=== PATIENT | female | born 1930 | race Caucasian/White ===

== ENCOUNTER 2016-10-23 12:28 | Inpatient (IN) | payer MEDICARE ==
[2016-10-23] MEDS ORDERED: IPRATROPIUM/ALBUTEROL 0.5/3 MG 3 ML AMPUL.NEB IH PRN (12:43)
[2016-10-23] MEDS ORDERED: HOME MEDICATION LIST NEEDED 1 EA EACH MC ONE (12:43)
[2016-10-23] MEDS ORDERED: FAMOTIDINE 20 MG TABLET PO PRN (12:43)
[2016-10-23] MEDS ORDERED: GUAIFENESIN ER 600 MG TABLET PO SCH (13:00)
--- NOTE | 2016-10-23 14:04 | RADIOLOGY REPORT ---
HISTORY: Shortness of breath. COMPARISON: 12/29/2011. FINDINGS: 2 views of the chest obtained. Marked hyperinflation of both lungs appears stable. There is blunting of the right costophrenic angle which is new since the prior study, suggesting a small effusion. There is right middle lobe collapse /consolidation which is new since the prior study. There is no evidence of pulmonary edema. There is no evidence of pneumothorax. The heart is not enlarged. The bones appear unremarkable. IMPRESSION: Right middle lobe airspace consolidation/collapse, which could reflect pneumonia. Follow-up chest rad iograph is recommended in 6 weeks to ensure resolution. Small right pleural effusion is new since the prior study, and may be sympathetic. Stable hyperinflation. No evidence of pulmonary edema. Final Electronic Signature: This report was electronically signed by Kvng Heller MD on 10/24/19 17 2:01 PM. [email or web address] /
[2016-10-23] MEDS: NORMAL SALINE 1,000 ML IV SCH (14:45)
[2016-10-23] MEDS ORDERED: O2 HUMIDIFIER 650 ML BOTTLE INHALATION ONE (14:56)
[2016-10-23] MEDS ORDERED: metroNIDAZOLE/SOD CL 500 MG in NORMAL SALINE PREMIX 100 ML 1 BAG IV SCH (15:00)
[2016-10-23 15:12] LABS: BLOOD UREA NITROGEN 25 mg/dL (7-17); CALCIUM 9.4 mg/dL (8.4-10.2); CHLORIDE 99 mmol/L (98-107); GLUCOSE 108 mg/dL (70-100); POTASSIUM 4.4 mmol/L (3.5-5.1); SODIUM 138 mmol/L (137-145)
[2016-10-23 15:15] LABS: HEMATOCRIT 34.9 % (36.0-48.0); HEMOGLOBIN 11.5 g/dL (12.0-16.0); MEAN CORPUSCULAR HEMOGLOBIN 34.6 pg (29.0-35.0); MEAN PLATELET VOLUME 7.3 fL (7.4-10.4); NEUTROPHILS 87.1 % (54.0-75.0); PLATELET COUNT 178 X 10^3uL (130-440); RED BLOOD COUNT 3.33 X 10^6uL (4.20-6.10); RED CELL DISTRIBUTION WIDTH 12.3 % (11.5-14.5); WHITE BLOOD COUNT 8.2 X 10^3uL (3.9-10.7)
[2016-10-23 15:16] LABS: BASOPHILS 0.4 % (0.0-2.0); EOSINOPHILS 1.1 % (0.0-6.0); EOSINOPHILS# 0.1 X 10^3uL (0.0-0.4); LYMPHOCYTES# 0.3 X 10^3uL (0.8-3.8); MONOCYTES 7.4 % (2.0-10.0); MONOCYTES# 0.6 X 10^3uL (0.2-1.0); NEUTROPHILS# 7.1 X 10^3uL (2.6-6.7)
[2016-10-23] MEDS ORDERED: PIGGYBACK IV ONE ×2 (15:32→21:38)
[2016-10-23] MEDS ORDERED: SOD CL IV ONE ×2 (15:32→21:38)
[2016-10-23] MEDS ORDERED: METRONIDAZOLE IV ONE ×2 (15:32→21:38)
[2016-10-23] MEDS ORDERED: LEVOFLOXACIN/D5W 100 ML IV ONE (15:34)
[2016-10-23] MEDS ORDERED: LEVOFLOXACIN/D5W 500 MG in DEXTROSE 5% PREMIX 100 ML 1 BAG IV ONE (16:00)
[2016-10-23] MEDS: GUAIFENESIN ER 600 MG TABLET PO SCH (21:24)
[2016-10-23] MEDS: metroNIDAZOLE/SOD CL 500 MG in NORMAL SALINE PREMIX 100 ML 1 BAG IV SCH (21:24)
[2016-10-23] MEDS: ACETAMINOPHEN 325 MG TABLET PO PRN (22:03)
[2016-10-24] MEDS: metroNIDAZOLE/SOD CL 500 MG in NORMAL SALINE PREMIX 100 ML 1 BAG IV SCH ×3 (05:34→21:05)
[2016-10-24] MEDS ORDERED: PIGGYBACK IV ONE ×3 (05:48→21:16)
[2016-10-24] MEDS ORDERED: SOD CL IV ONE ×3 (05:48→21:16)
[2016-10-24] MEDS ORDERED: METRONIDAZOLE IV ONE ×3 (05:48→21:16)
[2016-10-24] MEDS: GUAIFENESIN ER 600 MG TABLET PO SCH ×2 (09:51→21:04)
[2016-10-24] MEDS: LEVOFLOXACIN/D5W 250 MG/50 ML PIGGYBACK IV SCH (09:51)
--- NOTE | 2016-10-24 10:18 | PROGRESS NOTE: IM APSO ---
Assessment and Plan - Date of Encounter Date of Encounter: 10/24/16 (1) Pneumonia Status: Acute Assessment and plan: Probable aspiration pneumonia related to dysphagia from prior strokes. Suspect component of bronchiectasis from chronic inflammation and aspiration. Will request CT chest and increase pulmonary toilet with incentive spirometry and flutter valve as well as nebulizers. May require chest physiotherapy as well. In addition I placed consult for speech therapy for bedside evaluation and video fluoroscopy if needed. Recommended antibiotics to improve anaerobic coverage. We will follow-up surrogate markers of infection including white count and temperature. Current Visit: Yes (2) Stroke Status: Acute Assessment and plan: Continue dz modifying treatment for secondary prevention Current Visit: Yes (3) Spastic hemiplegia Status: Acute Current Visit: Yes (4) Dyslipidemia Status: Acute Current Visit: Yes (5) Hypothyroid Status: Acute Assessment and plan: compensated Current Visit: Yes (6) Obstructive lung disease Status: Acute Assessment and plan: possible chronic bronchitis but with exam suggestive component bronchiectesis. CT should help clarify and may need aggressive pulmonary toilet as above and aspiration precautions/ST evaluation and training with modified diet Current Visit: Yes - Time Spent With Patient Total time spent with greater than 50% in coordination of care (as documented) at patient's floor/unit and/or counseling patient: 25 - 35 minutes IM: PN Subjective General: no fatigue, no fever, no chills Cardiovascular: no chest pain, no chest pressure, no palpitations Respiratory: cough, sputum, SOB Gastrointestinal: no abdominal pain, no nausea, no vomiting Neurological: other ([place] and Domingo is an 86-year-old lady admitted by Dr. 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 after her first stroke and abnormal in [place] rehab after his second stroke. During those admissions she did undergo speech therapy and had a modified diet as well as chin tuck but has become noncompliant partly with chin tuck as well as modifying her diet and I suspect that her recurrent pneumonias are related to intermittent aspiration.) IM: PN Objective Exam - I&O/Vital Signs I&O: Intake & Output 10/23/16 10/24/16 10/24/16 21:59 05:59 13:59 Intake Total 428 1030 Output Total 400 150 Balance 28 880 Intake: IV 780 Left Wrist 780 Oral 428 250 Output: Urine 400 150 Other: Urine Appearance Clear Clear Urine Color Yellow Straw Voiding Method Toilet Bedside Commode # Voids 2 1 Vital Signs: Last Vital Signs Temp 37.1 C 10/24/16 06:25 Pulse 74 10/24/16 06:25 Resp 18 10/24/16 06:25 BP 150/79 10/24/16 06:25 Pulse Ox 97 10/24/16 06:25 Oxygen Flow Rate 4 Oxygen Delivery Method Nasal Cannula - Constitutional General appearance: Present: thin - Head Head exam: Present: atraumatic - ENT ENT exam: Present: mucous membranes moist - Neck Neck exam: Present: full ROM. Absent: lymphadenopathy - Respiratory Respiratory exam: Present: rhonchi (right base w/ velcro like crackles (? bronchietesis)) - Cardiovascular Cardiovascular exam: Present: RRR - GI/Abdominal GI/Abdominal exam: Present: normal bowel sounds, soft. Absent: tenderness - Extremities Exam Extremities exam: Absent: edema - Allied Health Notes Allied health notes reviewed: nursing - Lab Labs: Laboratory Last Values WBC 8.2 X 10^3uL (3.9-10.7) 10/23/16 14:54 RBC 3.33 X 10^6uL (4.20-6.10) L 10/23/16 14:54 Hgb 11.5 g/dL (12.0-16.0) L 10/23/16 14:54 Hct 34.9 % (36.0-48.0) L 10/23/16 14:54 MCV 105.0 fL (80.0-100.0) H 10/23/16 14:54 MCH 34.6 pg (29.0-35.0) 10/23/16 14:54 MCHC 33.0 g/dL (32.0-36.0) 10/23/16 14:54 RDW 12.3 % (11.5-14.5) 10/23/16 14:54 Plt Count 178 X 10^3uL (130-440) 10/23/16 14:54 MPV 7.3 fL (7.4-10.4) L 10/23/16 14:54 Neutrophils % 87.1 % (54.0-75.0) H 10/23/16 14:54 Lymphocytes % 4.0 % (20.0-40.0) L 10/23/16 14:54 Eosinophils % 1.1 % (0.0-6.0) 10/23/16 14:54 Basophils % 0.4 % (0.0-2.0) 10/23/16 14:54 Neutrophils # 7.1 X 10^3uL (2.6-6.7) H 10/23/16 14:54 Lymphocytes # 0.3 X 10^3uL (0.8-3.8) L 10/23/16 14:54 Monocytes 7.4 % (2.0-10.0) 10/23/16 14:54 Monocytes # 0.6 X 10^3uL (0.2-1.0) 10/23/16 14:54 Eosinophils # 0.1 X 10^3uL (0.0-0.4) 10/23/16 14:54 Basophils # 0.0 X 10^3uL (0.0-0.1) 10/23/16 14:54 Sodium 138 mmol/L (137-145) 10/23/16 14:54 Potassium 4.4 mmol/L (3.5-5.1) 10/23/16 14:54 Chloride 99 mmol/L (98-107) 10/23/16 14:54 Carbon Dioxide 27 mmol/L (22-30) 10/23/16 14:54 BUN 25 mg/dL (7-17) H 10/23/16 14:54 Creatinine 1.1 mg/dL (0.5-1.0) H 10/23/16 14:54 GFR Calculation Not Reportable 10/23/16 14:54 Glucose 108 mg/dL (70-100) H 10/23/16 14:54 Calcium 9.4 mg/dL (8.4-10.2) 10/23/16 14:54 Quality Questions - VTE Prophylaxis Assessment VTE Present on Admission?: No Patient at risk for venous thromboembolism?: Yes VTE Risk Level: Low Risk Pharmaceutical VTE prophylaxis contraindication reason: N/A- VTE prophylaxsis ordered Mechanical VTE prophylaxis contraindication reason: N/A- VTE prophylaxsis ordered (1) Pneumonia Qualifiers: Pneumonia type: aspiration pneumonia Laterality: right Lung location: lower lobe of lung (2) Stroke Qualifiers: Precerebral and cerebral artery: middle cerebral artery Laterality of affected vessel: right (5) Hypothyroid Qualifiers: 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
--- NOTE | 2016-10-24 11:41 | CT REPORT ---
HISTORY: Pneumonia with effusion. Bronchiectasis. COMPARISON: None. TECHNIQUE: This examination was performed using automated exposure control, adjustment of mA or kV according to patient size, and/or use of iterative reconstruction technique. Axial non-contrast enhanced images o btained from thoracic inlet through upper abdomen. FINDINGS: There is scattered multifocal reticular and nodular densities in both lungs. Scarring involves the stevo ng apices. An irregular nodule in the posterior right upper lobe (series 4, image 19) measures 9 x 8 mm area in irregular right lower lobe nodule (image 36) measures 10 x 8 mm. [place] ovoid opacity in the anterior right middle lobe (image 46) measures 2.9 x 2.5 cm. A left upper lobe nodule (image 8 ) measures 10 x 7 mm. There is a calcified nodule in the posterior left upper lobe, consistent with a n old granuloma. Other small subpleural nodular densities are noted bilaterally. There is no consolid ation. No areas of bronchiectasis are demonstrated. There is a small right pleural effusion. Minimal left pl eural effusion or posterior left pleural thickening is present. There is mild anterior pericardial th ickening without effusion. The heart size is mildly enlarged. No enlarged thoracic lymph nodes are de monstrated. Scattered small benign-appearing mediastinal nodes are noted. Imaged portions of the upper abdomen show a left liver lobe cyst but are otherwise unremarkable. The chest wall appears grossly intact. Multilevel degenerative disease is present in the thoracic spine a nd there is an old moderate superior endplate compression fracture of T12. There is mild retropulsion at that site. IMPRESSION: 1. Scattered reticular densities in both lungs, which are likely related to scarring or areas of make up operator ashley bronchiolitis. No evidence for bronchiectasis or acute pneumonia. 2. Bilateral pulmonary nodules, some of which are small and subpleural and others of which are larger and irregular, as described. Confluent soft tissue opacity within the right middle lobe. Recommend c omparison to any previous outside chest CT studies, if they become available. Given the patient's age , the findings can either be evaluated with PET scan or follow-up CT in 6 [address] assessment [address] ability. 3. Small right pleural effusion and either minimal left pleural effusion or left pleural thickening. 4. Moderate superior endplate compression of T12 appears old and shows slight retropulsion. Final Electronic Signature: This report was electronically signed by Kayode Desai MD on 10/24/2016 11:38 AM. [email or web address] /
--- NOTE | 2016-10-24 17:56 | HISTORY & PHYSICAL ---
Reason for Visit Fever Reason for Visit History Expand All Collapse All~ ~ Assessment and Plan: ~ ~ ~ ICD-10-CM ~ 1. Pneumonia of right lung due to infectious organism, unspecified part of lung J18.9 ~ ~ Admit to hospital with close monitoring of O2 reqt as it is significant. CXR JONH. Levaquin (Amox allergy, concern for possible aspiration pneumonia), nebs 2. Neutropenia, unspecified type (HC code) D70.9 ~ 3. Nocturnal hypoxia G47.34 ~ 4. Chronic cough R05 ~ 5. Hypoxia R09.02 ~ 6. Pulmonary emphysema, unspecified emphysema type (HC code) J43.9 ~ 7. Cerebrovascular accident (CVA) involving right middle cerebral artery territory (HC code) I63.511 ~ 8. 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 Dysphagia as late effect of stroke I69.391 ~ 10. Hemiplegia, late effect of cerebrovascular disease (HC code) I69.959 ~ 11. Spastic hemiplegia of left nondominant side due to cerebrovascular disease, unspecified cerebrovascular disease type (HC code) G81.14 ~ ~ I67.9 ~ ~No medications were added in this encounter. ~ ~ ~ ~ ~~ Subjective: ~ Patient ID: Gisella Meredith~is a 86 y.o.~female~who presents to [facility]~for feeling poorly after being seen and treated for "strep" five days ago. ~ HPI Comments:~Pt brought in by for "needing more treatment for strep" has been on Ceftin for 5 days but has a cough now and fever 100.1 per their report. The sore throat is improved. ~ Pt has a hx of CVA years ago, seen recently by Dr Yeh who recommended some therapy types of strategies for her L hand which is very affected, and noted gait also affected; the decision was to leave her on keppra which she has been on for years since CVA 2011 without further seizures. ~ I note from old records she is always pancytopenic including platelets. ~ I note an odd respiratory pattern, a forced quality, which states is normal for her; she actually holds her breath with ambulation sometimes r/t the old CVA. ~ HAS completed the series for pneumococcal pneumonia, both Prevnar and Pneumovax. ~ She is a former smoker with COPD noted in chart. ~ Chronic cough and dysphagia are also mentioned in the chart, so swallow eval will be done when improved, this may be aspiration related. ~ CURRENT MEDICATIONS: Current Outpatient Prescriptions Medication Sig acetaminophen (TYLENOL) 650 mg SR tablet Take 650 mg by mouth every 8 hours as needed. aspirin 325 mg tablet Take 325 mg by mouth daily. Note: with breakfast budesonide (ENTOCORT EC) 3 mg 24 hr capsule Take 2 capsules by mouth daily. celecoxib (CELEBREX) 200 mg capsule Take 1 capsule by mouth ~daily as needed for ~Osteoarthritis. Cephalexin 500 mg tablet Take 1 tablet by mouth 3 times daily for 7 days. CYANOCOBALAMIN, VITAMIN B-12, (VITAMIN B-12 PO) Take 2,000 mcg by mouth daily. escitalopram oxalate (LEXAPRO) 20 mg tablet Take 1 tablet by mouth ~daily HOME OXYGEN 2.5-3 L/min by Nasal Cannula route at night only. 2.5 at night and 3 l/m with walking levETIRAcetam (KEPPRA) 250 mg tablet TAKE ONE TABLET BY MOUTH TWICE DAILY levETIRAcetam (KEPPRA) 250 mg tablet Take 1 tablet by mouth ~twice a day levothyroxine (SYNTHROID) 75 mcg tablet Take 1 tablet by mouth daily. magnesium oxide (MAG-OX) 400 mg tablet Take 400 mg by mouth daily. metoprolol succinate (TOPROL-XL) 25 mg 24 hr tablet Take 1 tablet by mouth ~daily multivitamin (HEXAVITAMIN) per tablet Take 1 tablet by mouth daily. OMEGA-3S/DHA/EPA/FISH OIL (OMEGA 3 PO) Take ~by mouth daily. Specific dose unknown omeprazole (PRILOSEC) 20 mg capsule TAKE 1 CAPSULE BY MOUTH ~EVERY MORNING . TAKE 30-60 ~MINUTES PRIOR TO BREAKFAST pravastatin (PRAVACHOL) 20 mg tablet Take 1 tablet by mouth ~nightly at bedtime tolterodine (DETROL LA) 4 mg 24 hr capsule Take 1 capsule by mouth every morning for Bladder Hyperactivity. umeclidinium-vilanterol 62.5-25 mcg/actuation DsDv Inhale 1 puff into the lungs daily. VITS A,C,E/LUTEIN/MINERALS (OCUVITE WITH LUTEIN PO) Take 1 tablet by mouth daily. promethazine-codeine (PHENERGAN WITH CODEINE) 6.25-10 mg/5 mL syrup Take 5 mLs by mouth every 6 hours as needed for Cough. (Patient not taking: Reported on 10/23/2016) ~ No current facility-administered medications for this visit. ~ ~ ALLERGIES:~Freddy inhibitors; Amoxicillin (bulk); Losartan potassium; and Other ~ I have reviewed, verified and agree with the past medical~history as documented by the MA~today. ~ Review of Systems Constitutional: Positive for fatigue~and fever. HENT: Positive for sore throat. ~ Eyes: Negative. ~ Respiratory: Positive for cough~and shortness of breath. ~ Cardiovascular: Negative. ~ Gastrointestinal: Negative. ~ Musculoskeletal: Positive for back pain~and myalgias. Skin: Negative. ~ Neurological: Positive for weakness. Hematological: Negative. ~ Psychiatric/Behavioral: Negative. ~ ~ ~ ~~ Objective: Vital Signs: Visit Vitals BP 112/74 Pulse 89 Temp 37.5 C (99.5 F) (Temporal Artery) SpO2 92% ~ Requiring 4 L O2NC to get POx to 94% Initial POx on RA 79% ~ Physical Exam~ Constitutional: She appears well-developed~and well-nourished. No distress. Cardiovascular: Normal rate~and regular rhythm. ~ Pulmonary/Chest: No respiratory distress (odd pattern of somewhat tachypneic breathing but states is not related to this illness). She has no wheezes. She has rales~(poor breath sounds entire right chest, basically). Musculoskeletal: She exhibits no edema. Neurological: She exhibits abnormal muscle tone~(R hand chronically clenched r/ t remote CVA). Coordination~(wide based gait, chronic)~abnormal. Psychiatric: Pleasant and chatty ~ ~ ~ Procedures ~ DATA: No studies performed prior to admission/in the last 24 hours ~ ~~ TIME/COUNSELING: N/A~ ~ I am concerned this pneumonia may be related to her CVA hx and the dxs of dysphagia and chr cough. Will keep on thickened liquids until improved and swallow eval can be done. Levaquin is abx ordered d/t Amox allergy. Discussed with pt an that if she needed more complex medical care, ie worsened, she would be transferred to other medical facility. She is a full code with living will will bring from home. ~ Roxie Hughes MD Go to the hospital, this is not something we can treat from the clinic. Medications Reviewed As Of This Encounter Reviewed by Mook Mendez MA (Force Dispatcher) on 10/23/16 at 1157 ~ ~ Medication Order Taking? Sig Documenting Provider Last Dose Status acetaminophen (TYLENOL) 650 mg SR tablet [id number] Yes Take 650 mg by mouth every 8 hours as needed. Enrike Mariscal MD Taking Active aspirin 325 mg tablet [id number] Yes Take 325 mg by mouth daily. Note: with breakfast Enrike Mariscal MD Taking Active budesonide (ENTOCORT EC) 3 mg 24 hr capsule [id number] Yes Take 2 capsules by mouth daily. Amrik Cardenas MD Taking Active celecoxib (CELEBREX) 200 mg capsule [id number] Yes Take 1 capsule by mouth ~daily as needed for ~Osteoarthritis. Amrik Cardenas MD Taking Active Cephalexin 500 mg tablet [id number] Yes Take 1 tablet by mouth 3 times daily for 7 days. Esau Gaffney, JAYLEN Taking Active CYANOCOBALAMIN, VITAMIN B-12, (VITAMIN B-12 PO) [id number] Yes Take 2,000 mcg by mouth daily. Enrike Mariscal MD Taking Active escitalopram oxalate (LEXAPRO) 20 mg tablet [id number] Yes Take 1 tablet by mouth ~daily Amrik Cardenas MD Taking Active HOME OXYGEN [id number] Yes 2.5-3 L/min by Nasal Cannula route at night only. 2.5 at night and 3 l/m with walking Amrik Cardenas MD Taking Active levETIRAcetam (KEPPRA) 250 mg tablet [id number] Yes TAKE ONE TABLET BY MOUTH TWICE DAILY Amrik Cardenas MD Taking Active levETIRAcetam (KEPPRA) 250 mg tablet [id number] Yes Take 1 tablet by mouth ~twice a day Amrik Cardenas MD Taking Active levothyroxine (SYNTHROID) 75 mcg tablet [id number] Yes Take 1 tablet by mouth daily. Amrik Cardenas MD Taking Active magnesium oxide (MAG-OX) 400 mg tablet [id number] Yes Take 400 mg by mouth daily. Enrike Mariscal MD Taking Active metoprolol succinate (TOPROL-XL) 25 mg 24 hr tablet [id number] Yes Take 1 tablet by mouth ~daily Amrik Cardenas MD Taking Active multivitamin (HEXAVITAMIN) per tablet [id number] Yes Take 1 tablet by mouth daily. Enrike Mariscal MD Taking Active OMEGA-3S/DHA/EPA/FISH OIL (OMEGA 3 PO) [id number] Yes Take ~by mouth daily. Specific dose unknown Enrike Mariscal MD Taking Active omeprazole (PRILOSEC) 20 mg capsule [id number] Yes TAKE 1 CAPSULE BY MOUTH ~EVERY MORNING . TAKE 30-60 ~MINUTES PRIOR TO BREAKFAST Amrik Cardenas MD Taking Active pravastatin (PRAVACHOL) 20 mg tablet [id number] Yes Take 1 tablet by mouth ~nightly at bedtime Amrik Cardenas MD Taking Active promethazine-codeine (PHENERGAN WITH CODEINE) 6.25-10 mg/5 mL syrup [id number] No Take 5 mLs by mouth every 6 hours as needed for Cough. Patient not taking: Reported on 10/23/2016 Esau Gaffney P, RAILROAD CARMAN Not Taking Active tolterodine (DETROL LA) 4 mg 24 hr capsule [id number] Yes Take 1 capsule by mouth every morning for Bladder Hyperactivity. Amrik Cardenas MD Taking Active umeclidinium-vilanterol 62.5-25 mcg/actuation DsDv [id number] Yes Inhale 1 puff into the lungs daily. Amrik Cardenas MD Taking Active VITS A,C,E/LUTEIN/MINERALS (OCUVITE WITH LUTEIN PO) [id number] Yes Take 1 tablet by mouth daily. Enrike Mariscal MD Taking Active MTDD
[2016-10-24] MEDS: NORMAL SALINE 1,000 ML IV SCH (19:53)
[2016-10-24] MEDS: PRAVASTATIN SODIUM 40 MG TABLET PO SCH (21:04)
[2016-10-24] MEDS: LEVETIRACETAM 500 MG TABLET PO SCH (21:04)
[2016-10-24] MEDS: ACETAMINOPHEN 325 MG TABLET PO PRN (21:13)
[2016-10-25] MEDS: LEVOTHYROXINE 75 MCG TABLET PO SCH (06:22)
[2016-10-25] MEDS: metroNIDAZOLE/SOD CL 500 MG in NORMAL SALINE PREMIX 100 ML 1 BAG IV SCH (06:22)
[2016-10-25] MEDS ORDERED: METRONIDAZOLE IV ONE (06:36)
[2016-10-25] MEDS ORDERED: PIGGYBACK IV ONE (06:36)
[2016-10-25] MEDS ORDERED: SOD CL IV ONE (06:36)
[2016-10-25] MEDS: metoprolol SUCC ER 25 MG TABLET PO SCH (08:25)
[2016-10-25] MEDS: LEVETIRACETAM 500 MG TABLET PO SCH ×2 (08:25→20:44)
[2016-10-25] MEDS: ESCITALOPRAM OXALATE 10 MG TABLET PO SCH (08:25)
[2016-10-25] MEDS: ACETAMINOPHEN 325 MG TABLET PO PRN (08:25)
[2016-10-25] MEDS: LEVOFLOXACIN/D5W 250 MG/50 ML PIGGYBACK IV SCH (08:26)
[2016-10-25] MEDS: GUAIFENESIN ER 600 MG TABLET PO SCH ×2 (08:26→20:41)
[2016-10-25] MEDS: MAGNESIUM OXIDE 400 MG TABLET PO SCH (08:28)
--- NOTE | 2016-10-25 10:10 | RADIOLOGY REPORT ---
HISTORY: Evaluate pleural effusion COMPARISON: Same-day chest radiograph FINDINGS: 1 view of the chest obtained. Small to moderate right and small left layering pleural effusions. Biba silar atelectasis or infiltrate seen. Background of emphysema suspected. Aortic arch is calcified. IMPRESSION: Layering right larger than left pleural effusions. Final Electronic Signature: This report was electronically signed by Jac Klein MD on 10/25/2016 10:08 AM. [email or web address] /
--- NOTE | 2016-10-25 10:12 | RADIOLOGY REPORT ---
HISTORY: Shortness of breath COMPARISON: October 23, 2016 FINDINGS: 1 view of the chest obtained. Heart size within normal limits. Lungs are hyperinflated suggesting ivonne ma. Bilateral pleural effusions are seen, right larger than left, which appear slightly larger as com pared to the prior. Right middle lobe airspace consolidation may reflect atelectasis or pneumonia, is slightly more promi nent as compared to the prior. IMPRESSION: Bilateral pleural effusions, right larger left, slightly larger from prior exam. Emphysema. Right middle lobe consolidation slightly greater as compared to the prior. Again follow-up to resolut ion recommended. Final Electronic Signature: This report was electronically signed by Jac Klein MD on 10/25/2016 10:10 AM. tammi /
[2016-10-25] MEDS: PROBIOTIC 1 CAP CAPSULE PO SCH (11:43)
[2016-10-25] MEDS: BUDESONIDE 3 MG PO SCH (11:43)
[2016-10-25] MEDS: FAMOTIDINE 20 MG TABLET PO SCH ×2 (11:43→20:41)
[2016-10-25] MEDS ORDERED: FUROSEMIDE 20 MG/2 ML VIAL IV ONE (14:00)
[2016-10-25] MEDS: metroNIDAZOLE 500 MG TABLET PO SCH (20:41)
[2016-10-25] MEDS: PRAVASTATIN SODIUM 40 MG TABLET PO SCH (20:43)
--- NOTE | 2016-10-25 20:55 | PROGRESS NOTE: IM APSO ---
Assessment and Plan - Date of Encounter Date of Encounter: 10/25/16 (1) Pneumonia Status: Acute Assessment and plan: On chest x-ray this patient appears to have a right middle lobe pneumonia. This CT scan, was not as convincing for pneumonia and brings up a possibility of a nearly 3 cm mass in the right middle lobe. At this point it is unclear, but the patient's presenting complaint of fever and cough are more consistent with infection. She does feel better on Levaquin and metronidazole, and I will continue that. She has a mild to moderate right sided pleural effusion and small left-sided pleural effusion. Hopefully these are parapneumonic and not paraneoplastic. I will give her a few more days on the antibiotic to see if they start to resolve. I also supplemented with IV Lasix 10 mg today and see how she responds to that. I considered thoracentesis to help rule out malignancy, but decided to see how she does clinically first. The other option would be a PET scan once she is discharged. Current Visit: Yes (2) Obstructive lung disease Status: Acute Assessment and plan: She has a distant history of smoking, and has some risk for lung cancer. She is on an Anoro Ellipta inhaler chronically for some mild COPD. Current Visit: Yes (3) Hypoxia Status: Acute Assessment and plan: She normally requires oxygen just at night. Now she is needing 4 L per nasal cannula to maintain saturations in the low 90% range. This seems to be due to her pneumonia and pleural effusions, which I expect to improve with the treatments described above. Current Visit: Yes (4) Lung nodules Status: Acute Assessment and plan: On her chest CT on 10/24/16 she had multiple small nodules, but one larger area of consolidation versus mass in the right middle lobe measuring nearly 3 cm. Refer to the radiology report for further details. I looked through her [facility] chart and its clinical archives and found no other chest CT to compare to. 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 This has been fairly stable now for years. She ambulates slowly, but without falls, with the assistance of a quad cane. Current Visit: Yes - Time Spent With Patient Total time spent with greater than 50% in coordination of care (as documented) at patient's floor/unit and/or counseling patient: Estimated anticipated discharge: 10/27 IM: PN Subjective General: no fatigue, no fever, no chills Cardiovascular: no chest pain, no chest pressure, no palpitations Respiratory: cough (improved), no sputum, no SOB Gastrointestinal: no abdominal pain, no nausea, no vomiting Neurological: other (Niko is an 86-year-old lady admitted by Dr. 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 after her first stroke and abnormal in [place] rehab after his second stroke. During those admissions she did undergo speech therapy and had a modified diet as well as chin tuck but has become noncompliant partly with chin tuck as well as modifying her diet and I suspect that her recurrent pneumonias are related to intermittent aspiration.) IM: PN Objective Exam - I&O/Vital Signs I&O: Intake & Output 10/25/16 10/25/16 10/25/16 05:59 13:59 21:59 Intake Total 704 385 Output Total 600 500 Balance 104 -115 Intake: IV 504 Left Wrist 504 Oral 200 385 Output: Urine 600 500 Other: Urine Appearance Clear Clear Clear Urine Color Light Cindy Light Cindy Pale Yellow Stool Size Moderate Stool Characteristics Soft Brown Voiding Method Toilet Toilet Toilet # Voids 3 # Bowel Movements 1 Vital Signs: Last Vital Signs Temp 36.6 C 10/25/16 18:52 Pulse 75 10/25/16 18:52 Resp 16 10/25/16 18:52 BP 126/60 10/25/16 18:52 Pulse Ox 95 10/25/16 18:52 Oxygen Flow Rate 4 Oxygen Delivery Method Nasal Cannula - Constitutional General appearance: Present: cooperative, thin - Head Head exam: Present: atraumatic - ENT ENT exam: Present: mucous membranes moist - Respiratory Respiratory exam: Present: decreased breath sounds (In the right lower half and left lower quarter). Absent: rales, respiratory distress, rhonchi - Cardiovascular Cardiovascular exam: Present: RRR - GI/Abdominal GI/Abdominal exam: Present: normal bowel sounds, soft. Absent: tenderness - Extremities Exam Extremities exam: Absent: edema - Psychiatric Psychiatric exam: Present: normal mood - Allied Health Notes Allied health notes reviewed: nursing, RT - Lab Labs: Laboratory Last Values WBC 8.2 X 10^3uL (3.9-10.7) 10/23/16 14:54 RBC 3.33 X 10^6uL (4.20-6.10) L 10/23/16 14:54 Hgb 11.5 g/dL (12.0-16.0) L 10/23/16 14:54 Hct 34.9 % (36.0-48.0) L 10/23/16 14:54 MCV 105.0 fL (80.0-100.0) H 10/23/16 14:54 MCH 34.6 pg (29.0-35.0) 10/23/16 14:54 MCHC 33.0 g/dL (32.0-36.0) 10/23/16 14:54 RDW 12.3 % (11.5-14.5) 10/23/16 14:54 Plt Count 178 X 10^3uL (130-440) 10/23/16 14:54 MPV 7.3 fL (7.4-10.4) L 10/23/16 14:54 Neutrophils % 87.1 % (54.0-75.0) H 10/23/16 14:54 Lymphocytes % 4.0 % (20.0-40.0) L 10/23/16 14:54 Eosinophils % 1.1 % (0.0-6.0) 10/23/16 14:54 Basophils % 0.4 % (0.0-2.0) 10/23/16 14:54 Neutrophils # 7.1 X 10^3uL (2.6-6.7) H 10/23/16 14:54 Lymphocytes # 0.3 X 10^3uL (0.8-3.8) L 10/23/16 14:54 Monocytes 7.4 % (2.0-10.0) 10/23/16 14:54 Monocytes # 0.6 X 10^3uL (0.2-1.0) 10/23/16 14:54 Eosinophils # 0.1 X 10^3uL (0.0-0.4) 10/23/16 14:54 Basophils # 0.0 X 10^3uL (0.0-0.1) 10/23/16 14:54 Sodium 138 mmol/L (137-145) 10/23/16 14:54 Potassium 4.4 mmol/L (3.5-5.1) 10/23/16 14:54 Chloride 99 mmol/L (98-107) 10/23/16 14:54 Carbon Dioxide 27 mmol/L (22-30) 10/23/16 14:54 BUN 25 mg/dL (7-17) H 10/23/16 14:54 Creatinine 1.1 mg/dL (0.5-1.0) H 10/23/16 14:54 GFR Calculation Not Reportable 10/23/16 14:54 Glucose 108 mg/dL (70-100) H 10/23/16 14:54 Calcium 9.4 mg/dL (8.4-10.2) 10/23/16 14:54 (1) Pneumonia Qualifiers: Pneumonia type: aspiration pneumonia Laterality: right Lung location: lower lobe of lung
[2016-10-26] MEDS: LEVOTHYROXINE 75 MCG TABLET PO SCH (06:33)
[2016-10-26 06:39] LABS: BLOOD UREA NITROGEN 14 mg/dL (7-17); CALCIUM 9.4 mg/dL (8.4-10.2); CHLORIDE 103 mmol/L (98-107); GLUCOSE 93 mg/dL (70-100); POTASSIUM 4.1 mmol/L (3.5-5.1); SODIUM 139 mmol/L (137-145)
[2016-10-26 06:51] LABS: EOSINOPHILS 3.1 % (0.0-6.0); HEMATOCRIT 32.7 % (36.0-48.0); HEMOGLOBIN 11.1 g/dL (12.0-16.0); MEAN CORPUS. HGB CONCENTRATION 33.8 g/dL (32.0-36.0); MEAN CORPUSCULAR HEMOGLOBIN 35.1 pg (29.0-35.0); MEAN PLATELET VOLUME 6.9 fL (7.4-10.4); MONOCYTES 12.6 % (2.0-10.0); NEUTROPHILS 63.5 % (54.0-75.0); RED BLOOD COUNT 3.16 X 10^6uL (4.20-6.10); RED CELL DISTRIBUTION WIDTH 12.1 % (11.5-14.5); WHITE BLOOD COUNT 4.3 X 10^3uL (3.9-10.7)
[2016-10-26 06:52] LABS: BASOPHILS 0.9 % (0.0-2.0); NEUTROPHILS# 2.7 X 10^3uL (2.6-6.7)
[2016-10-26 06:53] LABS: LYMPHOCYTES# 0.9 X 10^3uL (0.8-3.8); MONOCYTES# 12.6 X 10^3uL (0.2-1.0)
[2016-10-26 06:54] LABS: BASOPHIL# 0.9 X 10^3uL (0.0-0.1); EOSINOPHILS# 3.1 X 10^3uL (0.0-0.4)
[2016-10-26 06:57] LABS: LYMPHOCYTES 19.9 % (20.0-40.0)
[2016-10-26] MEDS ORDERED: FUROSEMIDE 20 MG/2 ML VIAL IV SCH (07:00)
[2016-10-26] MEDS: PROBIOTIC 1 CAP CAPSULE PO SCH (08:09)
[2016-10-26] MEDS: FAMOTIDINE 20 MG TABLET PO SCH ×2 (08:09→21:10)
[2016-10-26] MEDS: GUAIFENESIN ER 600 MG TABLET PO SCH ×2 (08:09→21:10)
[2016-10-26] MEDS: metoprolol SUCC ER 25 MG TABLET PO SCH (08:10)
[2016-10-26] MEDS: LEVETIRACETAM 500 MG TABLET PO SCH ×2 (08:10→21:11)
[2016-10-26] MEDS: metroNIDAZOLE 500 MG TABLET PO SCH ×2 (08:11→21:10)
[2016-10-26] MEDS: MAGNESIUM OXIDE 400 MG TABLET PO SCH (08:11)
[2016-10-26] MEDS: ESCITALOPRAM OXALATE 10 MG TABLET PO SCH (08:11)
[2016-10-26] MEDS: LEVOFLOXACIN 250 MG TABLET PO SCH (08:12)
[2016-10-26] MEDS: BUDESONIDE 3 MG PO SCH (08:13)
--- NOTE | 2016-10-26 10:25 | PROGRESS NOTE: IM APSO ---
Assessment and Plan - Date of Encounter Date of Encounter: 10/26/16 (1) Pneumonia Status: Acute Assessment and plan: On chest x-ray this patient appears to have a right middle lobe pneumonia. This CT scan, was not as convincing for pneumonia and brings up a possibility of a nearly 3 cm mass in the right middle lobe. At this point the etiology is unclear, but the patient's presenting complaint of fever and cough are more consistent with infection. She does feel better on Levaquin and metronidazole, and I will continue that, but switched to PO. She has a mild to moderate right sided pleural effusion and small left-sided pleural effusion. Hopefully these are parapneumonic and not paraneoplastic. I will give her a few more days on the antibiotic to see if they start to resolve. Her WBC count is back to her low normal. I also supplemented with IV Lasix 10 mg again today and see how she responds to that. I considered thoracentesis to help rule out malignancy, but decided to see how she does clinically first. The other option would be a PET scan once she is discharged. I will get a pulmonary consult with Dr. Machado tomorrow tomorrow. Current Visit: Yes (2) Obstructive lung disease Status: Acute Assessment and plan: She has a distant history of smoking, and has some risk for lung cancer. She is on an Anoro Ellipta inhaler chronically for some mild COPD. No available here. Will give Pulmicort nebulizer treatments at 0.5 mg twice daily. We will continue her duo nebs. Current Visit: Yes (3) Hypoxia Status: Acute Assessment and plan: She normally requires oxygen just at night. Now she is needing 3 L per nasal cannula to maintain saturations in the low 90% range. Yesterday she was requiring 4 L/min. This seems to be due to her pneumonia and pleural effusions , which I expect to improve with the treatments described above. Pulm . consult tomorrow. Current Visit: Yes (4) Lung nodules Status: Acute Assessment and plan: On her chest CT on 10/24/16 she had multiple small nodules, but one larger area of consolidation versus mass in the right middle lobe measuring nearly 3 cm. Refer to the radiology report for further details. I looked through her [facility] chart and its clinical archives and found no other chest CT to compare to. 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 This has been fairly stable now for years. She ambulates slowly, but without falls, with the assistance of a quad cane. Current Visit: Yes (6) Pleural effusion associated with pulmonary infection Status: Acute Assessment and plan: Refer to the section on pneumonia. Current Visit: Yes - Time Spent With Patient Total time spent with greater than 50% in coordination of care (as documented) at patient's floor/unit and/or counseling patient: Estimated anticipated discharge: 10/27 IM: PN Subjective General: no fatigue, no fever, no chills Cardiovascular: no chest pain, no chest pressure, no palpitations Respiratory: cough (improved, dry now), no sputum, no SOB Gastrointestinal: no abdominal pain, no nausea, no vomiting Neurological: other (Swallowing study looked good per RN. Awaiting report) IM: PN Objective Exam - I&O/Vital Signs I&O: Intake & Output 10/25/16 10/26/16 10/26/16 21:59 05:59 13:59 Intake Total 385 125 Output Total 500 450 Balance -115 -325 Intake: Oral 385 125 Output: Urine 500 450 Other: Urine Appearance Clear Clear Urine Color Light Cindy Yellow Stool Size Moderate Stool Characteristics Soft Brown Voiding Method Toilet Toilet # Voids 3 # Bowel Movements 1 Vital Signs: Last Vital Signs Temp 36.7 C 10/26/16 06:26 Pulse 70 10/26/16 06:26 Resp 16 10/26/16 06:26 BP 150/70 10/26/16 06:26 Pulse Ox 86 L 10/26/16 08:55 Oxygen Flow Rate 3 Oxygen Delivery Method Nasal Cannula - Constitutional General appearance: Present: cooperative, thin - Head Head exam: Present: atraumatic - ENT ENT exam: Present: mucous membranes moist - Neck Neck exam: Present: full ROM. Absent: lymphadenopathy - Respiratory Respiratory exam: Present: decreased breath sounds (In the right lower half and left lower quarter, improved over yesterday.), rales (Mild in R base). Absent: respiratory distress, rhonchi - Cardiovascular Cardiovascular exam: Present: RRR - GI/Abdominal GI/Abdominal exam: Present: normal bowel sounds, soft. Absent: tenderness - Extremities Exam Extremities exam: Absent: edema - Psychiatric Psychiatric exam: Present: normal mood - Allied Health Notes Allied health notes reviewed: nursing, RT - Lab Labs: Laboratory Last Values WBC 4.3 X 10^3uL (3.9-10.7) 10/26/16 05:20 RBC 3.16 X 10^6uL (4.20-6.10) L 10/26/16 05:20 Hgb 11.1 g/dL (12.0-16.0) L 10/26/16 05:20 Hct 32.7 % (36.0-48.0) L 10/26/16 05:20 MCV 104.0 fL (80.0-100.0) H 10/26/16 05:20 MCH 35.1 pg (29.0-35.0) H 10/26/16 05:20 MCHC 33.8 g/dL (32.0-36.0) 10/26/16 05:20 RDW 12.1 % (11.5-14.5) 10/26/16 05:20 Plt Count 262 X 10^3uL (130-440) 10/26/16 05:20 MPV 6.9 fL (7.4-10.4) L 10/26/16 05:20 Neutrophils % 63.5 % (54.0-75.0) 10/26/16 05:20 Lymphocytes % 19.9 % (20.0-40.0) L 10/26/16 05:20 Eosinophils % 3.1 % (0.0-6.0) 10/26/16 05:20 Basophils % 0.9 % (0.0-2.0) 10/26/16 05:20 Neutrophils # 2.7 X 10^3uL (2.6-6.7) 10/26/16 05:20 Lymphocytes # 0.9 X 10^3uL (0.8-3.8) 10/26/16 05:20 Monocytes 12.6 % (2.0-10.0) H 10/26/16 05:20 Monocytes # 12.6 X 10^3uL (0.2-1.0) H 10/26/16 05:20 Eosinophils # 3.1 X 10^3uL (0.0-0.4) H 10/26/16 05:20 Basophils # 0.9 X 10^3uL (0.0-0.1) H 10/26/16 05:20 Sodium 139 mmol/L (137-145) 10/26/16 05:20 Potassium 4.1 mmol/L (3.5-5.1) 10/26/16 05:20 Chloride 103 mmol/L (98-107) 10/26/16 05:20 Carbon Dioxide 27 mmol/L (22-30) 10/26/16 05:20 BUN 14 mg/dL (7-17) 10/26/16 05:20 Creatinine 0.8 mg/dL (0.5-1.0) 10/26/16 05:20 GFR Calculation Not Reportable 10/26/16 05:20 Glucose 93 mg/dL (70-100) 10/26/16 05:20 Calcium 9.4 mg/dL (8.4-10.2) 10/26/16 05:20 (1) Pneumonia Qualifiers: Pneumonia type: aspiration pneumonia Laterality: right Lung location: lower lobe of lung
[2016-10-26] MEDS: BUDESONIDE 0.5 MG/2 ML NEB INHALATION SCH ×2 (11:00→21:10)
--- NOTE | 2016-10-26 12:04 | FLUORO REPORT ---
With the patient seated in the lateral position and the speech pathologist present swallowing was examined fluoroscopically. With thin and thick liquids, semi-solids and solids normal swallowing was observed. No penetration or aspiration was identified. No pooling was noted. IMPRESSION: Unremarkable video swallowing study. MTDD
[2016-10-26] MEDS: IPRATROPIUM/ALBUTEROL 0.5/3 MG 3 ML AMPUL.NEB INHALATION SCH ×2 (15:15→21:10)
[2016-10-26] MEDS: PRAVASTATIN SODIUM 40 MG TABLET PO SCH (21:11)
[2016-10-27] MEDS: LEVOTHYROXINE 75 MCG TABLET PO SCH (06:50)
--- NOTE | 2016-10-27 07:29 | PROGRESS NOTE: IM APSO ---
Assessment and Plan - Date of Encounter Date of Encounter: 10/27/16 (1) Pneumonia Status: Acute Assessment and plan: Improving. Hope to discharge to home this evening. O2 requirement down to 2 l/ m instead of 4 l/m. On the initial chest x-ray this patient appeared to have a right middle lobe pneumonia. The CT scan was not as convincing for pneumonia and brings up a possibility of a nearly 3 cm mass in the right middle lobe. At this point the etiology is unclear, but the patient's presenting complaint of fever and cough are more consistent with infection. She does feel better on Levaquin and metronidazole so I will continue that PO. She has a mild to moderate right sided pleural effusion and small left-sided pleural effusion, which seem to be improving clinically. Hopefully these are parapneumonic and not paraneoplastic. Her WBC count is back to her usual low normal level. I also supplemented with IV Lasix 10 mg daily for 2 days, which seemed to help. I considered thoracentesis to help rule out malignancy, but decided to see how she does clinically first. The other option would be a PET scan once she is discharged. I will get a pulmonary consult with Dr. Feliciano tomorrow to address whether to do a PET scan soon or just repeat a chest CT in 6 weeks. Likely this is an aspiration pneumonia, but her barium swallow was normal. Current Visit: Yes (2) Obstructive lung disease Status: Acute Assessment and plan: She has a distant history of smoking, and has some risk for lung cancer. She is on an Anoro Ellipta inhaler chronically for some mild COPD. Not available here, so is on Pulmicort and Duoneb nebulizer treatments regularly. Current Visit: Yes (3) Hypoxia Status: Acute Assessment and plan: She normally requires oxygen just at night. Now she is needing 2 L per nasal cannula to maintain saturations in the low 90% range. Two days ago she was requiring 4 L/min. This seems to be due to her pneumonia and pleural effusions , which I expect to improve with the treatments described above. Pulm . consult today. Current Visit: Yes (4) Lung nodules Status: Acute Assessment and plan: On her chest CT on 10/24/16 she had multiple small nodules, but one larger area of consolidation versus mass in the right middle lobe measuring nearly 3 cm. Refer to the radiology report for further details. I looked through her [facility] chart and its clinical archives and found no other chest CT to compare to. 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 This has been fairly stable now for years. She ambulates slowly, but without falls, with the assistance of a quad cane. Current Visit: Yes (6) Pleural effusion associated with pulmonary infection Status: Acute Assessment and plan: Refer to the section on pneumonia. Current Visit: Yes - Time Spent With Patient Total time spent with greater than 50% in coordination of care (as documented) at patient's floor/unit and/or counseling patient: Estimated anticipated discharge: 10/27 IM: PN Subjective General: no fatigue, no fever, no chills Cardiovascular: no chest pain, no chest pressure, no palpitations Respiratory: cough (improved, dry now), no sputum, no SOB Gastrointestinal: no abdominal pain, no nausea, no vomiting Neurological: other (Swallowing study was normal) IM: PN Objective Exam - I&O/Vital Signs I&O: Intake & Output 10/26/16 10/27/16 10/27/16 21:59 05:59 13:59 Intake Total 480 250 Output Total 625 150 Balance -145 100 Intake: Oral 480 250 Output: Urine 625 150 Other: Urine Appearance Clear Clear Urine Color Yellow Yellow Stool Size Small Moderate Stool Characteristics Formed Voiding Method Toilet Toilet # Voids 1 # Bowel Movements 1 2 Vital Signs: Last Vital Signs Temp 36.9 C 10/27/16 06:53 Pulse 73 10/27/16 06:53 Resp 14 10/27/16 06:53 BP 136/65 10/27/16 06:53 Pulse Ox 90 10/27/16 06:53 Oxygen Flow Rate 2 Oxygen Delivery Method Nasal Cannula - Constitutional General appearance: Present: cooperative, thin - ENT ENT exam: Present: mucous membranes moist - Neck Neck exam: Present: full ROM. Absent: lymphadenopathy - Respiratory Respiratory exam: Present: decreased breath sounds (In the right lower half and left lower quarter, improved over yesterday.), rales (Mild in R base). Absent: respiratory distress, rhonchi - Cardiovascular Cardiovascular exam: Present: RRR - GI/Abdominal GI/Abdominal exam: Present: normal bowel sounds, soft. Absent: tenderness - Extremities Exam Extremities exam: Absent: edema - Psychiatric Psychiatric exam: Present: normal mood - Allied Health Notes Allied health notes reviewed: nursing, social work - Lab Labs: Laboratory Last Values WBC 4.3 X 10^3uL (3.9-10.7) 10/26/16 05:20 RBC 3.16 X 10^6uL (4.20-6.10) L 10/26/16 05:20 Hgb 11.1 g/dL (12.0-16.0) L 10/26/16 05:20 Hct 32.7 % (36.0-48.0) L 10/26/16 05:20 MCV 104.0 fL (80.0-100.0) H 10/26/16 05:20 MCH 35.1 pg (29.0-35.0) H 10/26/16 05:20 MCHC 33.8 g/dL (32.0-36.0) 10/26/16 05:20 RDW 12.1 % (11.5-14.5) 10/26/16 05:20 Plt Count 262 X 10^3uL (130-440) 10/26/16 05:20 MPV 6.9 fL (7.4-10.4) L 10/26/16 05:20 Neutrophils % 63.5 % (54.0-75.0) 10/26/16 05:20 Lymphocytes % 19.9 % (20.0-40.0) L 10/26/16 05:20 Eosinophils % 3.1 % (0.0-6.0) 10/26/16 05:20 Basophils % 0.9 % (0.0-2.0) 10/26/16 05:20 Neutrophils # 2.7 X 10^3uL (2.6-6.7) 10/26/16 05:20 Lymphocytes # 0.9 X 10^3uL (0.8-3.8) 10/26/16 05:20 Monocytes 12.6 % (2.0-10.0) H 10/26/16 05:20 Monocytes # 12.6 X 10^3uL (0.2-1.0) H 10/26/16 05:20 Eosinophils # 3.1 X 10^3uL (0.0-0.4) H 10/26/16 05:20 Basophils # 0.9 X 10^3uL (0.0-0.1) H 10/26/16 05:20 Sodium 139 mmol/L (137-145) 10/26/16 05:20 Potassium 4.1 mmol/L (3.5-5.1) 10/26/16 05:20 Chloride 103 mmol/L (98-107) 10/26/16 05:20 Carbon Dioxide 27 mmol/L (22-30) 10/26/16 05:20 BUN 14 mg/dL (7-17) 10/26/16 05:20 Creatinine 0.8 mg/dL (0.5-1.0) 10/26/16 05:20 GFR Calculation Not Reportable 10/26/16 05:20 Glucose 93 mg/dL (70-100) 10/26/16 05:20 Calcium 9.4 mg/dL (8.4-10.2) 10/26/16 05:20 (1) Pneumonia Qualifiers: Pneumonia type: aspiration pneumonia Laterality: right Lung location: lower lobe of lung
[2016-10-27] MEDS: IPRATROPIUM/ALBUTEROL 0.5/3 MG 3 ML AMPUL.NEB INHALATION SCH (07:37)
[2016-10-27] MEDS ORDERED: ONDANSETRON ODT 4 MG TAB.RAPDIS PO PRN (08:41)
[2016-10-27] MEDS: BUDESONIDE 0.5 MG/2 ML NEB INHALATION SCH (08:52)
[2016-10-27] MEDS: FAMOTIDINE 20 MG TABLET PO SCH (09:01)
[2016-10-27] MEDS: metroNIDAZOLE 500 MG TABLET PO SCH (09:01)
[2016-10-27] MEDS: LEVETIRACETAM 500 MG TABLET PO SCH (09:01)
[2016-10-27] MEDS: LEVOFLOXACIN 250 MG TABLET PO SCH (09:02)
[2016-10-27] MEDS: ESCITALOPRAM OXALATE 10 MG TABLET PO SCH (09:02)
[2016-10-27] MEDS: metoprolol SUCC ER 25 MG TABLET PO SCH (09:02)
[2016-10-27] MEDS: GUAIFENESIN ER 600 MG TABLET PO SCH (09:02)
[2016-10-27] MEDS: MAGNESIUM OXIDE 400 MG TABLET PO SCH (09:02)
[2016-10-27] MEDS: PROBIOTIC 1 CAP CAPSULE PO SCH (09:02)
[2016-10-27 10:51] VITALS: BP 118/63; PULSE 79; RESP 12; TEMP 98.5; O2SAT 90
--- NOTE | 2016-10-27 19:05 | DC SUMMARY: IM Note ---
Discharge Summary: IM/Peds Provider: Date of Admission: 10/23/16 Admitting Provider: SMITH BRAGA MD Attending Provider: AMEENA MALDONADO MD Discharging Provider: AMEENA MALDONADO MD Primary Care Provider: Discharge Date: 10/27/16 Consults: 10/27/16 08:00 Pulmonology Consult [CONS] Routine Reason: RML pneumonia. COPD exacerbation. R/O CA (?RML mass?). PET soon vs rpt. chest CT in 6-8 weeks. - Diagnosis (1) Pneumonia Status: Acute Qualifiers: Pneumonia type: aspiration pneumonia Laterality: right Lung location: lower lobe of lung (2) Obstructive lung disease Status: Acute (3) Hypoxia Status: Acute (4) Lung nodules Status: Acute (5) History of ischemic cerebrovascular accident with residual deficit Status: Acute (6) Pleural effusion associated with pulmonary infection Status: Acute Hospital Course: Refer to my progress note from this morning. Dr. Machado evaluated her midday, and felt that she most likely has pneumonia. I will discharge her on Levaquin and metronidazole orally for the next 5 days. She will need oxygen at 2 L/min by nasal cannula during the day at rest, 2-1/2 L/min through the night, and 3 L/ min if walking. Prescription for this was sent to [facility]. I will follow-up with her at [facility] in 2 days. In 6 weeks I will repeat a CAT scan of the chest with contrast to rule out any malignancy. - Time Spent with Patient Total time spent providing and/or coordinating discharge services: Discharge - Patient/Caregiver Discharge Instructions Activity Level: Use a cane. Diet: Regular Additional Instructions: Use O2 at 2 l/m at rest during the day, 2.5 l/m at night, and 3 l/m with walking. Follow up: AMEENA MALDONADO MD [Primary Care Provider] - 10/29/16 11:00 am MARIBEL PATRICIA MD [MD] - 12/15/16 10:00 am (PT HAS A FOLLOW UP APPT WITH DR PATRICIA IN THE [facility] ON 12/15/16 @ 10:00AM) Home Medications: Levofloxacin [Levaquin*] 250 mg PO DAILY 5 Days metroNIDAZOLE [Flagyl*] 500 mg PO BID 5 Days Disposition: HOME, SELF-CARE Discharge Summary Data - Medication History Medication History: Home Medications Acetaminophen ER [Tylenol ER*] 650 mg PO TID PRN 10/23/16 Budesonide [Budesonide EC] 3 mg PO DAILY 10/23/16 Celecoxib [Celebrex*] 200 mg PO DAILY 10/23/16 Cyanocobalamin [VITAMIN B-12*] 2,000 mcg PO DAILY 10/23/16 Escitalopram Oxalate 20 mg PO DAILY 10/23/16 Levetiracetam 250 mg PO BID 10/23/16 Levothyroxine [Synthroid*] 75 mcg PO BEFORE BREAKFAST 10/23/16 Magnesium Oxide [Mag-Ox*] 400 mg PO DAILY 10/23/16 Metoprolol Succinate 25 mg PO DAILY 10/23/16 Multivitamins,Therapeutic [Thera Multivitamin*] 1 tab PO DAILY 10/23/16 Ocuvite Vit C/E/Zinc/Cu [Ocuvite Lutein Capsule*] 1 cap PO DAILY 10/23/16 [place]-3 Fatty Acids [Fish Oil Concentrate] 1,000 mg PO DAILY 10/23/16 Omeprazole Magnesium [Prilosec Otc] 20 mg PO BEFORE BREAKFAST 10/23/16 Pravastatin Sodium [Pravastatin Sodium*] 20 mg PO HS 10/23/16 Tolterodine Tartrate [Detrol LA] 4 mg PO DAILY 10/23/16 Umeclidinium Brm/Vilanterol Tr [Anoro Ellipta 62.5-25 Mcg INH] 1 puff INHALATION DAILY 10/23/16 aspirin EC [Aspirin EC*] 325 mg PO DAILY 10/23/16 Levofloxacin [Levaquin*] 250 mg PO DAILY 5 Days 10/27/16 Probiotic [Rosalinda-Q Capsule*] 1 cap PO DAILY 10/27/16 metroNIDAZOLE [Flagyl*] 500 mg PO BID 5 Days 10/27/16 Procedures and tests throughout hospitalization: Completed Lab Orders 10/23/16 14:54 BASIC METABOLIC PANEL [CHEM] Stat CBC AUTO DIF, MDIF/RMOR IF IND [HEM] Stat 10/26/16 05:20 BMP [BASIC METABOLIC PANEL] [CHEM] AMDRAW CBC AUTO DIF, MDIF/RMOR IF IND [HEM] AMDRAW Completed Imaging Orders 10/23/16 12:43 CXR 2V 45753 [RAD] Stat 10/24/16 10:29 ct [CAT SCAN; CHEST W/O CON 50412] [CT] Stat 10/25/16 09:08 CHEST; DECUBITUS 58539 [RAD] Routine CHEST; SINGLE VIEW 90252 [RAD] Routine 10/26/16 14:58 SWALLOW W/ SPEECH [id number] [FLUORO] Routine Pending Orders 10/23/16 12:43 Admit: Inpatient Routine Activity: Ambulate TID Activity: BRP w/ Assist Only . Assess pulse oximetry CONTINUOUS Intake and Output QSHIFT I&O Obtain weight Daily Oxygen by Nasal Cannula 3 L/MIN Resuscitation Status Routine Sequential Compression Device WHILE IN BED Titrate Oxygen TITRATE B/W 88-92% Vital Signs ROUTINE VITALS (Q4H) Chemical Recovery Operator Consult [CM] Routine 10/23/16 12:45 Incentive Spirometry Q1H 10/23/16 12:48 SPUTUM CULTURE AND GRAM STAIN [RM] Stat Respiratory Therapy Consult [RT] Routine 10/23/16 12:50 VTE Prophylaxis Scoring/ Ordering Routine 10/23/16 13:03 Swallow Evaluation Study [ST] . 10/23/16 13:18 Miscellaneous Care Order . 10/23/16 14:54 BLOOD CULTURE [BC] Stat 10/24/16 10:29 Flutter Valve Q4H 10/27/16 08:00 Pulmonology Consult [CONS] Routine 10/27/16 14:19 Discharge ONCE Labs on day of discharge: Preliminary micro results at discharge 10/23/16 14:54 Blood Culture - Preliminary Blood NO GROWTH TO DATE 10/23/16 14:54 Blood Culture - Preliminary Blood NO GROWTH TO DATE IM: Discharge Physical Exam - I&O/Vital Signs I&O: Intake & Output 10/27/16 10/27/16 10/27/16 05:59 13:59 21:59 Intake Total 250 Output Total 150 Balance 100 Intake: Oral 250 Output: Urine 150 Other: Urine Appearance Clear Clear Urine Color Yellow Yellow Stool Size Moderate Moderate Stool Characteristics Formed Voiding Method Toilet Toilet # Voids 1 # Bowel Movements 2 Vital Signs: Last Vital Signs Temp 36.9 C 10/27/16 10:50 Pulse 79 10/27/16 10:50 Resp 12 10/27/16 10:50 BP 118/63 10/27/16 10:50 Pulse Ox 90 10/27/16 10:50 Oxygen Flow Rate 2 Oxygen Delivery Method Nasal Cannula - Constitutional General appearance: Present: cooperative, thin - Head Head exam: Present: atraumatic - ENT ENT exam: Present: mucous membranes moist - Neck Neck exam: Present: full ROM. Absent: lymphadenopathy - Respiratory Respiratory exam: Present: decreased breath sounds (In the right lower half and left lower quarter, improved over yesterday.), rales (Mild in R base). Absent: respiratory distress, rhonchi - Cardiovascular Cardiovascular exam: Present: RRR - GI/Abdominal GI/Abdominal exam: Present: normal bowel sounds, soft. Absent: tenderness - Extremities Exam Extremities exam: Absent: edema - Psychiatric Psychiatric exam: Present: normal mood - Allied Health Notes Allied health notes reviewed: nursing, social work
== END 2016-10-27 14:19 | disposition home or self-care (01) | DRG 177 ==
LOC: IN 12:28
PROVIDERS: ADMIT Family Medicine; ATTEND Family Medicine
DX: J69.0 Pneumonitis due to inhalation of food and vomit (principal); J44.1 Chronic obstructive pulmonary disease with (acute) exacerbation; I63.511 Cerebral infarction due to unspecified occlusion or stenosis of right middle cerebral artery; I69.322 Dysarthria following cerebral infarction; I69.391 Dysphagia following cerebral infarction; I69.959 Hemiplegia and hemiparesis following unspecified cerebrovascular disease affecting unspecified side; R91.8 Other nonspecific abnormal finding of lung field; E03.9 Hypothyroidism, unspecified; E78.5 Hyperlipidemia, unspecified; Z79.899 Other long term (current) drug therapy
CPT/HCPCS: 36415; 71010; 71020; 71035; 71250; 74230; 80048; 84443; 85025; 87040; 94640; 94664; E0555; G8996; G8997; G8998; J1940; J1956; J7030; J7620